=== PATIENT | female | born 1980 | race African-American/Black ===

== ENCOUNTER 2020-11-30 09:35 | Day surgery (SDC) | payer OTHER ==
[2020-11-30] MEDS ORDERED: MORGIDOX100 MG PO (15:45)
[2020-11-30] MEDS ORDERED: NAPR500T14 PO (15:45)
== END 2020-11-30 16:00 | disposition home or self-care (01) ==
LOC: CIR.AMB 09:35
PROVIDERS: ATTEND Obstetrics & Gynecology
DX: D25.0 Submucous leiomyoma of uterus (principal); N84.0 Polyp of corpus uteri; Z20.822 Contact with and (suspected) exposure to COVID-19